=== PATIENT | male | born 1985 | race Caucasian/White ===

== ENCOUNTER 2020-09-08 00:07 | Emergency (ER) | payer MEDICARE, OTHER ==
[~2020-09-08 00:07] MED LIST: ASPIRIN CHEWABL81 MG PO; AUGMENTIN 875-1 EACH PO; BACTRIM DS TAB1 EACH PO; MYLANTA MAXIMU355 ML PO; NITROSTAT0.4 MG SL
[2020-09-08 00:26] LABS: HEMOGLOBIN 12.8 gm/dl (14.0-17.5); RED BLOOD COUNT 4.07 M/UL (4.20-5.50); WHITE BLOOD COUNT 5.1 K/UL (4.5-11.0)
[2020-09-08 00:47] LABS: BUN/CREATININE RATIO 15 (0-10)
== END 2020-09-08 03:59 | disposition home or self-care (01) ==
LOC: ER1 00:07
PROVIDERS: Family Medicine
DX: R07.89 Other chest pain (principal); R06.02 Shortness of breath; E11.9 Type 2 diabetes mellitus without complications; K21.9 Gastro-esophageal reflux disease without esophagitis; I11.9 Hypertensive heart disease without heart failure; F17.210 Nicotine dependence, cigarettes, uncomplicated
CPT/HCPCS: 71046; 80053; 82550; 82553; 83874; 84484; 85025; 93005; 99285

== ENCOUNTER 2020-09-12 00:43 | Emergency (ER) | payer MEDICARE, OTHER ==
[2020-09-12 03:38] LABS: RED BLOOD COUNT 4.25 M/UL (4.20-5.50); WHITE BLOOD COUNT 4.4 K/UL (4.5-11.0)
[2020-09-12 04:04] LABS: BUN/CREATININE RATIO 13 (0-10)
== END 2020-09-12 05:06 | disposition home or self-care (01) ==
LOC: ER1 00:43
PROVIDERS: Student in an Organized Health Care Education/Training Program
DX: R07.89 Other chest pain (principal); K21.9 Gastro-esophageal reflux disease without esophagitis; E11.9 Type 2 diabetes mellitus without complications; F17.210 Nicotine dependence, cigarettes, uncomplicated; I11.9 Hypertensive heart disease without heart failure
CPT/HCPCS: 71046; 80053; 82550; 82553; 83874; 84484; 85025; 93005; 99285

== ENCOUNTER 2020-09-19 17:11 | Emergency (ER) | payer MEDICARE, OTHER ==
[2020-09-19 18:20] LABS: HEMOGLOBIN 12.7 gm/dl (14.0-17.5); RED BLOOD COUNT 4.06 M/UL (4.20-5.50); WHITE BLOOD COUNT 5.8 K/UL (4.5-11.0)
[2020-09-19 18:38] LABS: BUN/CREATININE RATIO 17 (0-10)
== END 2020-09-19 21:58 | disposition home or self-care (01) ==
LOC: ER1 17:11
PROVIDERS: Physician Assistant Medical
DX: R07.89 Other chest pain (principal); E11.9 Type 2 diabetes mellitus without complications; I10 Essential (primary) hypertension; J45.909 Unspecified asthma, uncomplicated; Z79.01 Long term (current) use of anticoagulants; F17.210 Nicotine dependence, cigarettes, uncomplicated
CPT/HCPCS: 71045; 80053; 81001; 82550; 82553; 83874; 83880; 84484; 85025; 85379; 93005; 99285

== ENCOUNTER 2020-09-25 19:57 | Inpatient (IN) | payer MEDICARE, OTHER ==
[~2020-09-25] VITALS: Ht 170.2 cm; Wt 90.3 kg
[2020-09-25 20:23] LABS: HEMOGLOBIN 13.6 gm/dl (14.0-17.5); RED BLOOD COUNT 4.32 M/UL (4.20-5.50); WHITE BLOOD COUNT 4.8 K/UL (4.5-11.0)
[2020-09-25 20:38] LABS: BUN/CREATININE RATIO 17 (0-10)
[2020-09-26 03:47] LABS: HEMOGLOBIN 13.2 gm/dl (14.0-17.5); RED BLOOD COUNT 4.24 M/UL (4.20-5.50); WHITE BLOOD COUNT 5.8 K/UL (4.5-11.0)
[2020-09-26 04:46] LABS: BUN/CREATININE RATIO 18 (0-10)
[2020-09-28] MEDS ORDERED: LEVOFLOXACIN500 MG PO (11:31)
[2020-09-28] MEDS ORDERED: SUDAFED 30 MG T30 MG PO (11:31)
--- NOTE | 2020-09-28 14:17 | NUR ---
1045 PT'S ERECTION HAS RETRACTED AND PT STATES THAT IT FEELS MUCH BETTER
--- NOTE | 2020-09-28 14:19 | NUR ---
SPOKE WITH THE PT'S MOTHER AND RENEA ROGERS AND INFOREMED HER OF PT'S NEED FOR TRANSFER AND THE REASONING. PT'S MOTHER AGREED TO TRANSFER. DR BELLO ANSWERED QUESIONS.
== END 2020-09-28 16:00 | DRG 728 ==
LOC: ER1 19:57 → CDU 21:07 → MED SURG 4 21:07
PROVIDERS: Emergency Medicine; ADMIT Internal Medicine
DX: N41.9 Inflammatory disease of prostate, unspecified (principal); N48.30 Priapism, unspecified; R33.9 Retention of urine, unspecified; Z20.822 Contact with and (suspected) exposure to COVID-19; I10 Essential (primary) hypertension; F79 Unspecified intellectual disabilities; E11.9 Type 2 diabetes mellitus without complications; E66.9 Obesity, unspecified; E78.5 Hyperlipidemia, unspecified; I25.10 Atherosclerotic heart disease of native coronary artery without angina pectoris; Z95.5 Presence of coronary angioplasty implant and graft; Z79.82 Long term (current) use of aspirin; Z79.4 Long term (current) use of insulin
CPT/HCPCS: 71045; 80048; 80053; 80061; 81001; 82550; 82553; 82962; 83036; 83690; 83874; 84484; 85025; 93005; 96372; 99285; G0378; J1650; J2270; U0002

== ENCOUNTER 2020-10-10 18:21 | Emergency (ER) | payer MEDICARE, OTHER ==
[~2020-10-10 18:21] MED LIST changes: +LEVOFLOXACIN500 MG PO; +SUDAFED 30 MG T30 MG PO
[2020-10-10 19:15] LABS: HEMOGLOBIN 12.5 gm/dl (14.0-17.5); RED BLOOD COUNT 3.98 M/UL (4.20-5.50); WHITE BLOOD COUNT 3.4 K/UL (4.5-11.0)
[2020-10-10 19:41] LABS: BUN/CREATININE RATIO 21 (0-10)
== END 2020-10-10 23:13 | disposition home or self-care (01) ==
LOC: ER1 18:21
PROVIDERS: Family Medicine
DX: R07.9 Chest pain, unspecified (principal); I10 Essential (primary) hypertension; E78.5 Hyperlipidemia, unspecified; E11.9 Type 2 diabetes mellitus without complications; I25.10 Atherosclerotic heart disease of native coronary artery without angina pectoris; I25.2 Old myocardial infarction; F17.210 Nicotine dependence, cigarettes, uncomplicated
CPT/HCPCS: 71045; 80053; 82550; 82553; 83874; 84484; 85025; 93005; 99285

== ENCOUNTER 2020-10-15 22:19 | Emergency (ER) | payer MEDICARE, OTHER ==
[2020-10-15 23:55] LABS: HEMOGLOBIN 12.2 gm/dl (14.0-17.5); RED BLOOD COUNT 3.88 M/UL (4.20-5.50); WHITE BLOOD COUNT 5.2 K/UL (4.5-11.0)
[2020-10-16 00:51] LABS: BUN/CREATININE RATIO 12 (0-10)
[2020-10-16] MEDS ORDERED: ASPIRIN CHEWABL81 MG PO (02:23)
== END 2020-10-16 03:00 | disposition home or self-care (01) ==
LOC: ER1 22:19
PROVIDERS: Physician Assistant
DX: R07.9 Chest pain, unspecified (principal); E11.9 Type 2 diabetes mellitus without complications; I10 Essential (primary) hypertension; E78.5 Hyperlipidemia, unspecified; F17.210 Nicotine dependence, cigarettes, uncomplicated
CPT/HCPCS: 71045; 80053; 82550; 82553; 83874; 84484; 85025; 93005; 99285

== ENCOUNTER 2021-03-09 13:53 | Emergency (ER) | payer MEDICARE, OTHER ==
[2021-03-09] MEDS ORDERED: AUGMENTIN 875-1 EACH PO (16:27)
[2021-03-09] MEDS ORDERED: BACTROBAN OINT22 GM EXT (16:27)
== END 2021-03-09 16:40 | disposition home or self-care (01) ==
LOC: ER1 13:53
DX: S91.312A Laceration without foreign body, left foot, initial encounter (principal); E11.9 Type 2 diabetes mellitus without complications; E03.9 Hypothyroidism, unspecified; F17.200 Nicotine dependence, unspecified, uncomplicated; W26.8XXA Contact with other sharp object(s), not elsewhere classified, initial encounter
CPT/HCPCS: 12002; 73630; 99283

== ENCOUNTER → 2021-10-31 | Outpatient (CLI) | payer MEDICARE, OTHER ==
[~2021-10-31] MED LIST changes: +BACTROBAN OINT22 GM EXT
[2021-10-31 09:10] LABS: HEMOGLOBIN 12.4 gm/dl (14.0-17.5); RED BLOOD COUNT 4.79 M/UL (4.20-5.50); WHITE BLOOD COUNT 4.2 K/UL (4.5-11.0)
[2021-10-31 09:47] LABS: BUN/CREATININE RATIO 17 (0-10)
== END ==
LOC: LAB 08:46
PROVIDERS: Nurse Practitioner Primary Care
DX: E11.9 Type 2 diabetes mellitus without complications (principal); D72.819 Decreased white blood cell count, unspecified; I10 Essential (primary) hypertension; R11.0 Nausea; E55.9 Vitamin D deficiency, unspecified; E88.9 Metabolic disorder, unspecified
CPT/HCPCS: 36415; 80053; 80061; 83036; 83735; 84443; 85025